=== PATIENT | female | born 2000 | race Caucasian/White ===

== ENCOUNTER 2020-05-10 18:04 | Emergency (ER) | payer OTHER, SELFPAY ==
[2020-05-10 18:05] VITALS: BP 150/100; PULSE 62; RESP 16; TEMP 36.6; O2SAT 95; BMI 44.9
--- NOTE | 2020-05-10 18:32 | ED.VISSUMM ---
- ER Visit Summary Date of Service: 05/10/20 Chief Complaint: [Anxiety and depression] History of Present Illness: The patient is a 19 F [presents to the emergency department with complaint of not feeling like herself over the last 3 months. Patient states that she feels lost in herself and in the world. Patient states that she is very sensitive about other people's criticisms of her. She is having a hard time sleeping at night. Patient has been using melatonin to try to sleep and at times she has very vivid dreams and does not get a full night sleep. She is having thoughts about being possessed by the devil which she does not want to actually have happened. Patient has had thoughts of wanting to harm herself but has no plan and does not believe that she would ever intentionally harm herself in any way or anybody else. She denies any auditory or visual hallucinations. Patient was advised to come to the emergency department by her family members. He does not feel that she needs to be hospitalized but would like some help with some medications to help with her anxiety and help her sleep. She has an appointment with her primary care physician coming up. Patient would be willing to speak with individual from crisis. She denies any illicit drug use, alcohol use, or tobacco use.] Physical Examination: [HEENT-PERRLA, EOMI. Cranial nerves II through XII grossly intact. TMs clear. Mucous membranes moist. No adenopathy. Patient does have some pressured speech. She appears well kept. Cardiovascular-regular rate and rhythm without murmur or ectopy Lungs-clear to auscultation, chest wall stable without crepitus or subcu emphysema Abdomen-normoactive bowel sounds, soft, nontender, no rebound or rigidity, no peritoneal signs. Extremities-intact ?4, normal range of motion, normal pulses, atraumatic] Test Results: [None indicated] Emergency Department Course and Treatment: [Patient was evaluated by crisis and they are in agreement the patient safe to be discharged home. Patient stated that she is not currently ready for therapy per se but there happy to keep in touch with crisis. Patient has an appointment coming up with her primary care physician on May 14. Patient is not felt to be a risk to harm her self or others. She is currently living with her family.] Treatment Plan: [Patient to follow-up with her primary care physician. She will be given a prescription for Ativan as needed anxiety.] Disposition: [Discharged home in stable condition] Impression: [Anxiety Depression] This note was generated with [employer] dictation software. It may contain incorrect words, spelling, and punctuation that were not noted in review of the chart prior to signing ED Disposition - Plan for ED Patient: Referrals: [facility] Doctor,Out of [NON-STAFF] -
--- NOTE | 2020-05-10 20:15 | ED.DEP ---
ED Disposition - Plan for ED Patient: Instructions: ED Depression, ED Anxiety Reaction Prescriptions: Lorazepam [Ativan] 1 mg PO TID PRN #10 tab PRN Reason: Anxiety Prescription Printed Referrals: [facility],Out of [NON-STAFF] - 3-5 Days
[2020-05-10 20:23] VITALS: BP 134/99; PULSE 71; RESP 16; O2SAT 97
== END 2020-05-10 21:02 | disposition home or self-care (01) ==
LOC: ED 20:10
PROVIDERS: Emergency Provider Emergency Medicine; PCP Family Medicine
DX: F32.9 Major depressive disorder, single episode, unspecified (principal); F41.9 Anxiety disorder, unspecified
CPT/HCPCS: 99282

== ENCOUNTER 2022-08-26 08:23 | Emergency (ER) | payer OTHER, SELFPAY ==
[2022-08-26 08:24] VITALS: BP 121/87; PULSE 69; RESP 18; TEMP 36.8; O2SAT 97; BMI 53.5
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
[2022-08-26] MEDS: Acetaminophen 500 MG Tablet 1000 MG PO (08:47)
[2022-08-26 09:32] VITALS: BP 118/62; PULSE 74; RESP 16; O2SAT 98
== END 2022-08-26 09:33 | disposition home or self-care (01) ==
PROVIDERS: Emergency Provider Emergency Medicine; PCP Internal Medicine; Referring Provider Emergency Medicine; Visit Provider Emergency Medicine
DX: S09.90XA Unspecified injury of head, initial encounter (principal); E66.9 Obesity, unspecified; V43.62XA Car passenger injured in collision with other type car in traffic accident, initial encounter
CPT/HCPCS: 70450; 99284